=== PATIENT | male | born 1990 ===

== ENCOUNTER 2018-05-15 08:11 | Emergency (ER) | payer OTHER ==
[2018-05-15 08:18] VITALS: BMI 44.7
[2018-05-15 08:22] VITALS: BP 143/88; TEMP 98.5; O2SAT 99
[2018-05-15] MEDS ORDERED: Silver Nitrate Topical - Stick TOP ONE (08:46)
[2018-05-15] MEDS ORDERED: Silver Nitrate Topical - Stick ONE ×2 (08:53→09:10)
--- NOTE | 2018-05-15 08:57 | C.PDOC ---
History Of Present Illness 28 years old male presents to ED for complaints of bleeding from scrotum that began this morning. Patient states "I pulled an ingrown hair and scratched my scrotum then experienced bleeding." Patient states bleeding did not stop which prompted the ED Visit. Denies any other complaints. Time Seen by Provider: 05/15/18 08:37 Chief Complaint (Nursing): Abnormal Skin Integrity History Per: Patient History/Exam Limitations: no limitations Onset/Duration Of Symptoms: Hrs Current Symptoms Are (Timing): Still Present Recent travel outside of the [place]: No Past Medical History Reviewed: Historical Data, Nursing Documentation, Vital Signs Vital Signs: Last Vital Signs Temp 98.5 F 05/15/18 08:19 Pulse 67 05/15/18 08:19 Resp 18 05/15/18 08:19 BP 143/88 05/15/18 08:19 Pulse Ox 99 05/15/18 08:19 - Medical History PMH: No Chronic Diseases Surgical History: No Surg Hx Family History: States: No Known Family Hx - Social History Hx Alcohol Use: Yes Hx Substance Use: No - Immunization History Hx Tetanus Toxoid Vaccination: No Hx Influenza Vaccination: No Hx Pneumococcal Vaccination: No Review Of Systems Except As Marked, All Systems Reviewed And Found Negative. Constitutional: Negative for: Fever, Chills Gastrointestinal: Negative for: Nausea, Vomiting, Abdominal Pain, Diarrhea Genitourinary: Positive for: Other (Scrotal bleeding ) Skin: Negative for: Rash Neurological: Negative for: Weakness, Numbness Physical Exam - Physical Exam Appears: Non-toxic, No Acute Distress Skin: Normal Color, Warm, Dry, No Rash Head: Atraumatic, Normacephalic Eye(s): bilateral: Normal Inspection, PERRL, EOMI Oral Mucosa: Moist Neck: Normal ROM, Supple Chest: Symmetrical, No Tenderness Cardiovascular: Rhythm Regular, No Murmur Respiratory: Normal Breath Sounds, No Rales, No Rhonchi, No Wheezing Male Genital: Other (Superficial small scrotal vein bleeding ) Extremity: Normal ROM Extremity: Bilateral: Atraumatic, Normal Color And Temperature, Normal ROM Neurological/Psych: Oriented x3, Normal Speech Gait: Steady ED Course And Treatment O2 Sat by Pulse Oximetry: 99 (RA) Pulse Ox Interpretation: Normal Medical Decision Making Medical Decision Making: Plan: * Silver nitrate stick was applied. Bleeding stopped. Patient now has no complaints. Care instructions advised. Patient is stable for discharge and will be discharged. Return if symptoms worsen or persist. Disposition Counseled Patient/Family Regarding: Diagnosis, Need For Followup - Disposition Disposition: HOME/ ROUTINE Disposition Time: 08:55 Condition: STABLE Prescriptions: Doxycycline Hyclate 100 mg PO BID #10 capsule Instructions: Folliculitis Forms: CareeInstruction by [employer] ([place]) - Clinical Impression Clinical Impression: Skin lesion - Scribe Statement The provider has reviewed the documentation as recorded by the Carissa Arrington All medical record entries made by the Carlaibcely were at my direction and personally dictated by me. I have reviewed the chart and agree that the record accurately reflects my personal performance of the history, physical exam, medical decision making, and the department course for this patient. I have also personally directed, reviewed, and agree with the discharge instructions and disposition.
[2018-05-15 09:21] VITALS: PULSE 80; RESP 20
== END 2018-05-15 09:21 | disposition home or self-care (01) ==
LOC: C.ER 08:11
DX: L98.9 Disorder of the skin and subcutaneous tissue, unspecified (principal)